=== PATIENT | male | born 1980 | race Caucasian/White ===

== ENCOUNTER 2022-10-10 17:14 | Emergency (ER) | payer SELFPAY ==
[~2022-10-10] VITALS: Ht 167.6 cm; Wt 69.0 kg
[2022-10-10 17:53] VITALS: BP 128/69
[2022-10-10] MEDS ORDERED: KETOROLAC 30MG/ML VIAL IM ONE (21:30)
== END 2022-10-10 22:53 | disposition home or self-care (01) ==
LOC: ER 17:14
DX: S40.012A Contusion of left shoulder, initial encounter (principal); V03.90XA Pedestrian on foot injured in collision with car, pick-up truck or van, unspecified whether traffic or nontraffic accident, initial encounter; Y93.01 Activity, walking, marching and hiking; Y92.488 Other paved roadways as the place of occurrence of the external cause
CPT/HCPCS: 71045; 73030; 96372; 99284; J1885